=== PATIENT | female | born 1965 | race African-American/Black ===

== ENCOUNTER 2016-09-29 00:30 | Emergency (ER) | payer OTHER ==
[~2016-09-29] VITALS: Ht 162.6 cm; Wt 85.8 kg
[~2016-09-29 00:30] MED LIST: AMLODIPINE BESYL5 MG PO; FISH OIL 1,0001 EAC7 PO; FLEXERIL10 MG PO; FLONASE16 G1 BOTH NARES; IBUPROFEN800 MG PO; IRON325 M1 PO; KEFLEX500 MG PO; LANTUS 10100 UNITS/ SC; LIDODERM 5% P1 PATCH TD; LISINOPRIL2.5 MG PO; METHOCARBAMOL500 MG PO; METOPROLOL TART50 MG PO; MOTRIN800 MG PO; NAPROSYN500 MG PO; POTASSIUM CHLO20 ME2 PO; SIMVASTATIN40 MG PO; ULTRAM50 MG PO; VALIUM5 MG PO; XANAX0.25 MG PO; ZOCOR40 MG PO
[2016-09-29 01:07] LABS: HEMATOCRIT 41.9 % (36.0-46.0); MCH 26.1 PG (29.0-34.0); MCHC 31.7 G/DL (30.0-36.0); MCV 82.3 FL (83-99); RBC DIS.WIDTH-CV 15.4 % (11.8-14.6); RBC DIS.WIDTH-SD 46.5 % (39-53); RED BLOOD COUNT 5.09 M/uL (3.80-5.20); WHITE BLOOD COUNT 5.9 K/uL (4.1-10.2)
[2016-09-29 01:30] LABS: CHLORIDE 105 mEq/L (99-109); POTASSIUM 4.1 mEq/L (3.7-5.4); SODIUM 135 mEq/L (136-147)
[2016-09-29 01:31] LABS: GLUCOSE 204 mg/dL (70-99)
[2016-09-29 01:33] LABS: ANION GAP 9 MEQ/L (2-14)
[2016-09-29 01:35] LABS: GFR ESTIMATE (CALCULATED) > 59 mL/min/
[2016-09-29 01:36] LABS: UREA NITROGEN (BUN) 12 mg/dL (9-23)
[2016-09-29 01:37] LABS: TROP-I INTERPRETATION NEGATIVE; TROPONIN-I 0.02 ng/mL (0.0-0.30)
[2016-09-29 01:46] LABS: MEAN PLAT.VOLUME 11.5 uM^3 (9.5-12.4); PLATELET COUNT 217 K/uL (156-360)
[2016-09-29 03:07] LABS: TROP-I INTERPRETATION NEGATIVE; TROPONIN-I 0.01 ng/mL (0.0-0.30)
[2016-09-29 04:04] VITALS: BP 142/78
== END 2016-09-29 04:05 | disposition home or self-care (01) ==
LOC: EME 00:30
PROVIDERS: Physician Assistant
DX: R07.9 Chest pain, unspecified (principal); M25.519 Pain in unspecified shoulder; I10 Essential (primary) hypertension
CPT/HCPCS: 71020; 80048; 84484; 85027; 93005; 99281; 99284

== ENCOUNTER 2017-12-02 06:11 | Emergency (ER) | payer OTHER ==
[~2017-12-02] VITALS: Ht 162.6 cm; Wt 87.4 kg
[2017-12-02 06:55] LABS: BASOPHIL (%) 0.3 % (0-1); EOSINOPHIL (%) 0.7 % (0-5); EOSINOPHIL COUNT 0.1 K/uL (0-0.3); HEMATOCRIT 39.5 % (36.0-46.0); HEMOGLOBIN 12.9 G/DL (11.9-15.5); IMMATURE GRANULOCYTE (%) 0.3 % (0.0-0.7); LYMPHOCYTE (%) 19.3 % (15-42); LYMPHOCYTE COUNT 2.1 K/uL (1.0-2.8); MCH 27.2 PG (29.0-34.0); MCHC 32.7 G/DL (30.0-36.0); MCV 83.2 FL (83-99); MONOCYTE (%) 8.2 % (3-12); MONOCYTE COUNT 0.9 K/uL (0-0.8); NEUTROPHIL (%) 71.2 % (45-76); NEUTROPHIL COUNT 7.6 K/uL (1.8-6.4); PLATELET COUNT 266 K/uL (156-360); RBC DIS.WIDTH-CV 13.7 % (11.8-14.6); RBC DIS.WIDTH-SD 41.4 % (39-53); RED BLOOD COUNT 4.75 M/uL (3.80-5.20); WHITE BLOOD COUNT 10.6 K/uL (4.1-10.2)
[2017-12-02 07:16] LABS: CHLORIDE 103 MEQ/L (99-109); CREATININE 0.7 MG/DL (0.6-1.3); GFR ESTIMATE (CALCULATED) > 59 mL/min/; GLUCOSE 165 mg/dL (70-99); POTASSIUM 3.8 MEQ/L (3.7-5.4); SODIUM 134 MEQ/L (136-147); UREA NITROGEN (BUN) 11 mg/dL (9-23)
[2017-12-02 07:21] LABS: TROP-I INTERPRETATION NEGATIVE; TROPONIN-I 0.02 ng/mL (0.0-0.30)
[2017-12-02 09:32] LABS: TROP-I INTERPRETATION NEGATIVE; TROPONIN-I < 0.01 ng/mL (0.0-0.30)
[2017-12-02 10:40] VITALS: BP 109/78
== END 2017-12-02 10:43 | disposition home or self-care (01) ==
LOC: EME 06:11
PROVIDERS: Emergency Medicine
DX: R07.89 Other chest pain (principal); R94.31 Abnormal electrocardiogram [ECG] [EKG]; I51.7 Cardiomegaly; E11.9 Type 2 diabetes mellitus without complications; I10 Essential (primary) hypertension; E78.5 Hyperlipidemia, unspecified; Z98.890 Other specified postprocedural states
CPT/HCPCS: 71045; 80048; 84484; 85025; 93005; 99281; 99285